=== PATIENT | female | born 1945 | race Caucasian/White ===

== ENCOUNTER 2018-02-09 10:16 | Emergency (ER) | payer MEDICARE, OTHER ==
[~2018-02-09] VITALS: Ht 154.9 cm; Wt 64.0 kg
[2018-02-09 11:18] LABS: BASOPHIL % 0.2 % (0-2); PLATELET COUNT 221 x10^3mcL (130-400); RED CELL DISTRIBUTION WIDTH 14.5 % (11.5-14.5)
[2018-02-09 11:27] LABS: CALCIUM 10.3 mg/dL (8.5-10.1); CARBON DIOXIDE 29.2 mmol/L (21-32); CHLORIDE SERUM 104 mmol/L (98-107); CREATININE SERUM 1.3 mg/dL (0.6-1.0); GLUCOSE SERUM 113 mg/dL (74-106); POTASSIUM SERUM 4.3 mmol/L (3.5-5.1); SODIUM SERUM 137 mmol/L (136-145)
[2018-02-09 11:32] LABS: ALBUMIN 3.8 g/dL (3.4-5.0); ALKALINE PHOSPHATASE 120 U/L (46-116); ALT/SGPT 18 U/L (14-59); AST/SGOT 21 U/L (15-37); BILIRUBIN TOTAL 0.61 mg/dL (0.20-1.00); TOTAL PROTEIN, SERUM 7.5 g/dL (6.4-8.2)
[2018-02-09 12:55] LABS: microscopic required? YES; urine erythrocyte 1+ (NEGATIVE)
[2018-02-09 13:06] VITALS: BP 142/91
== END 2018-02-09 13:06 | disposition home or self-care (01) ==
LOC: ED 10:16
PROVIDERS: Emergency Medicine
DX: R41.82 Altered mental status, unspecified (principal); N39.0 Urinary tract infection, site not specified; M19.90 Unspecified osteoarthritis, unspecified site
CPT/HCPCS: J7030

== ENCOUNTER 2018-05-26 14:31 | Inpatient (IN) | payer OTHER, MEDICARE ==
[~2018-05-26] VITALS: Ht 149.9 cm; Wt 68.0 kg
[2018-05-26 14:32] VITALS: Ht 149.9 cm; Wt 68.0 kg
[2018-05-26 15:12] LABS: BASOPHIL % 0.9 % (0-2); PLATELET COUNT 227 x10^3mcL (130-400)
[2018-05-26 15:13] LABS: RED CELL DISTRIBUTION WIDTH 15.1 % (11.5-14.5)
[2018-05-26 15:23] LABS: CARBON DIOXIDE 28.3 mmol/L (21-32); CHLORIDE SERUM 104 mmol/L (98-107); CREATININE SERUM 1.3 mg/dL (0.6-1.0); GLUCOSE SERUM 121 mg/dL (74-106); SODIUM SERUM 139 mmol/L (136-145)
[2018-05-26 15:26] LABS: ALBUMIN 3.6 g/dL (3.4-5.0); ALKALINE PHOSPHATASE 138 U/L (46-116); ALT/SGPT 17 U/L (14-59); AST/SGOT 26 U/L (15-37); BILIRUBIN TOTAL 0.4 mg/dL (0.20-1.00); LIPASE 106 IU/L (73-393); TOTAL PROTEIN, SERUM 7.8 g/dL (6.4-8.2); TRIGLYCERIDES 52 mg/dL (<150)
[2018-05-26 15:27] LABS: CHOLESTEROL 215 mg/dL (<200); CHOLESTEROL/HDL RATIO 2.9; HDL CHOLESTEROL 74 mg/dL (40-60)
[2018-05-26 15:40] LABS: FREE T4 1.41 ng/dL (0.76-1.46)
[2018-05-26 15:43] LABS: FREE THYROXINE INDEX 4.7 ug/dL (1.4-4.5); T4(THYROXINE) 13.7 ug/dL (4.7-13.3)
[2018-05-26] MEDS ORDERED: BREO ELLIPTA1 POW IH (15:46)
[2018-05-26] MEDS ORDERED: BETASERON0.3 M1 SQ (15:46)
[2018-05-26] MEDS ORDERED: CATAPRES0.1 MG PO (15:47)
[2018-05-26] MEDS ORDERED: FLOVENT DI100 MCG/A1 INH (15:47)
[2018-05-26] MEDS ORDERED: ZANTAC 150150 MG PO (15:47)
[2018-05-26] MEDS ORDERED: WELLBUTRIN SR100 M1 PO (15:48)
[2018-05-26] MEDS ORDERED: TIROSINT50 MC1 PO (15:48)
[2018-05-26] MEDS ORDERED: NORCO1 TA2 PO (15:49)
[2018-05-26] MEDS ORDERED: BACLOFEN10 MG PO (15:49)
[2018-05-26] MEDS ORDERED: TRAZODONE50 M1 PO (15:49)
[2018-05-26] MEDS ORDERED: VITAMIN D32000 I2 (15:49)
[2018-05-26 15:50] LABS: T3 TOTAL 1.26 ng/mL
[2018-05-26] MEDS ORDERED: AMITRIPTYLINE H25 M1 PO (15:50)
[2018-05-26 16:34] LABS: UA SPECIFIC GRAVITY 1.025 (1.005-1.035); microscopic required? YES; urine erythrocyte 2+ (NEGATIVE)
[2018-05-26 16:51] LABS: AMPHETAMINE QUAL UR NONE DETECTED (See below)
[2018-05-26 17:09] LABS: MAGNESIUM 2.4 mg/dL (1.8-2.4); PHOSPHOROUS 2.9 mg/dL (2.5-4.9)
[2018-05-26 18:13] VITALS: BP 145/77
[2018-05-26 18:21] VITALS: BP 145/77
[2018-05-26 18:39] VITALS: BP 145/77
[2018-05-26 20:59] VITALS: BP 130/72
[2018-05-27 05:24] VITALS: BP 124/65
[2018-05-27 06:36] LABS: BASOPHIL % 0.5 % (0-2); PLATELET COUNT 208 x10^3mcL (130-400)
[2018-05-27 07:14] LABS: CARBON DIOXIDE 28.6 mmol/L (21-32); CHLORIDE SERUM 110 mmol/L (98-107); GLUCOSE SERUM 106 mg/dL (74-106); MAGNESIUM 2.1 mg/dL (1.8-2.4); PHOSPHOROUS 2.5 mg/dL (2.5-4.9); POTASSIUM SERUM 4.7 mmol/L (3.5-5.1); SODIUM SERUM 144 mmol/L (136-145)
[2018-05-27 07:19] LABS: RED CELL DISTRIBUTION WIDTH 15.2 % (11.5-14.5)
[2018-05-27 09:47] VITALS: BP 99/60
[2018-05-27 12:53] VITALS: BP 120/65
[2018-05-27 17:01] VITALS: BP 131/70
[2018-05-27 19:45] VITALS: BP 148/65
[2018-05-28 06:00] VITALS: BP 147/75
[2018-05-28 06:35] LABS: BASOPHIL % 0.4 % (0-2); PLATELET COUNT 192 x10^3mcL (130-400)
[2018-05-28 07:05] LABS: CALCIUM 8.9 mg/dL (8.5-10.1); CARBON DIOXIDE 28.2 mmol/L (21-32); CHLORIDE SERUM 109 mmol/L (98-107); GLUCOSE SERUM 98 mg/dL (74-106); MAGNESIUM 1.9 mg/dL (1.8-2.4); PHOSPHOROUS 2.7 mg/dL (2.5-4.9); SODIUM SERUM 143 mmol/L (136-145)
[2018-05-28 08:30] VITALS: BP 158/93
[2018-05-28 12:22] VITALS: BP 150/86
[2018-05-28 17:09] VITALS: BP 145/77
[2018-05-28 20:33] VITALS: BP 108/54
[2018-05-29 05:35] VITALS: BP 154/75
[2018-05-29 07:23] LABS: CALCIUM 9.3 mg/dL (8.5-10.1); CARBON DIOXIDE 27.7 mmol/L (21-32); CHLORIDE SERUM 103 mmol/L (98-107); GLUCOSE SERUM 91 mg/dL (74-106); MAGNESIUM 1.9 mg/dL (1.8-2.4); PHOSPHOROUS 3.3 mg/dL (2.5-4.9); POTASSIUM SERUM 3.9 mmol/L (3.5-5.1); SODIUM SERUM 137 mmol/L (136-145)
[2018-05-29 08:02] LABS: BASOPHIL % 0.7 % (0-2); PLATELET COUNT 202 x10^3mcL (130-400); RED CELL DISTRIBUTION WIDTH 15.1 % (11.5-14.5)
[2018-05-29 09:03] VITALS: BP 148/86
[2018-05-29 12:46] VITALS: BP 118/82
[2018-05-29 17:33] VITALS: BP 124/67
[2018-05-29 21:28] VITALS: BP 131/74
[2018-05-30 05:29] VITALS: BP 128/67
[2018-05-30] MEDS ORDERED: LEVOFLOXACIN250 MG PO (08:58)
[2018-05-30 09:32] VITALS: BP 118/69; BP 125/78; BP 128/67
[2018-05-30 09:56] VITALS: BP 118/69
[2018-05-30 14:10] VITALS: BP 125/78
== END 2018-05-30 17:19 | DRG 48 ==
LOC: ED 14:31 → DU 16:20
PROVIDERS: General Practice; Internal Medicine; Specialist
PROC: 3E0234Z Introduction of Serum, Toxoid and Vaccine into Muscle, Percutaneous Approach (ICD-10-PCS; principal; 2018-05-26)
PROC: 0HQ0XZZ Repair Scalp Skin, External Approach (ICD-10-PCS; 2018-05-26)
DX: G90.8 Other disorders of autonomic nervous system (principal); N17.0 Acute kidney failure with tubular necrosis; G35 Multiple sclerosis; N39.0 Urinary tract infection, site not specified; S01.01XA Laceration without foreign body of scalp, initial encounter; M19.90 Unspecified osteoarthritis, unspecified site; E78.5 Hyperlipidemia, unspecified; E03.9 Hypothyroidism, unspecified; F32.9 Major depressive disorder, single episode, unspecified; Z96.653 Presence of artificial knee joint, bilateral; W17.89XA Other fall from one level to another, initial encounter; Y92.012 Bathroom of single-family (private) house as the place of occurrence of the external cause; Z87.891 Personal history of nicotine dependence; Z68.30 Body mass index [BMI] 30.0-30.9, adult; Y93.89 Activity, other specified; Y99.8 Other external cause status; Z98.49 Cataract extraction status, unspecified eye; Z88.1 Allergy status to other antibiotic agents; Z88.8 Allergy status to other drugs, medicaments and biological substances; Z23 Encounter for immunization
CPT/HCPCS: 76770; 83880; 84439; 90732; 97110-GP; 97116-GP; 97530-GP; A9577; J0696; J1885; J1956; J2405; J2550; J7030; Q0092

== ENCOUNTER 2019-06-10 23:19 | Inpatient (IN) | payer OTHER, MEDICARE ==
[~2019-06-10] VITALS: Ht 149.9 cm; Wt 67.3 kg
[~2019-06-10 23:19] MED LIST: AMITRIPTYLINE25 M1 PO; BACLOFEN10 MG PO; BETASERON0.3 M1 SQ; BREO ELLIPTA1 POW IH; CATAPRES0.1 MG PO; FLOVENT DI100 MCG/A1 INH; LEVOFLOXACIN250 MG PO; NORCO1 TA2 PO; TIROSINT50 MC1 PO; TRAZODONE50 M1 PO; VITAMIN D32000 I2; WELLBUTRIN SR100 M1 PO; ZANTAC 150150 MG PO
[2019-06-10 23:25] VITALS: Ht 149.9 cm; Wt 67.3 kg
[2019-06-11 00:32] LABS: BASOPHIL % 0.4 % (0-2); PLATELET COUNT 228 x10^3mcL (130-400); RED CELL DISTRIBUTION WIDTH 14.2 % (11.5-14.5)
[2019-06-11 00:39] LABS: CALCIUM 10.1 mg/dL (8.5-10.1); CARBON DIOXIDE 31.5 mmol/L (21-32); CHLORIDE SERUM 107 mmol/L (98-107); CREATININE SERUM 1.1 mg/dL (0.6-1.0); GLUCOSE SERUM 116 mg/dL (74-106); POTASSIUM SERUM 4.2 mmol/L (3.5-5.1); SODIUM SERUM 145 mmol/L (136-145)
[2019-06-11 00:43] LABS: ALKALINE PHOSPHATASE 98 U/L (46-116); ALT/SGPT 16 U/L (14-59); AST/SGOT 18 U/L (15-37); BILIRUBIN TOTAL 0.3 mg/dL (0.20-1.00); TOTAL PROTEIN, SERUM 6.9 g/dL (6.4-8.2)
[2019-06-11 00:53] LABS: ALBUMIN 3.3 g/dL (3.4-5.0)
[2019-06-11 03:55] LABS: microscopic required? YES; urine erythrocyte 1+ (NEGATIVE)
[2019-06-11 05:51] VITALS: BP 153/91
[2019-06-11 06:11] VITALS: BP 153/91
[2019-06-11 08:45] VITALS: BP 138/55
[2019-06-11 12:22] VITALS: BP 125/65
[2019-06-11 17:19] VITALS: BP 99/53
[2019-06-11 20:40] VITALS: BP 110/57
[2019-06-12 06:12] VITALS: BP 101/74
[2019-06-12 07:05] LABS: BASOPHIL % 0.6 % (0-2); PLATELET COUNT 180 x10^3mcL (130-400); RED CELL DISTRIBUTION WIDTH 14.2 % (11.5-14.5)
[2019-06-12 07:33] LABS: CALCIUM 10.2 mg/dL (8.5-10.1); CARBON DIOXIDE 30.3 mmol/L (21-32); CHLORIDE SERUM 103 mmol/L (98-107); CREATININE SERUM 1.2 mg/dL (0.6-1.0); GLUCOSE SERUM 68 mg/dL (74-106); POTASSIUM SERUM 4.5 mmol/L (3.5-5.1); SODIUM SERUM 139 mmol/L (136-145)
[2019-06-12 08:45] VITALS: BP 122/71
[2019-06-12 12:36] VITALS: BP 115/46
[2019-06-12 17:48] VITALS: BP 155/78
[2019-06-12 21:03] VITALS: BP 116/73
[2019-06-13 04:59] VITALS: BP 97/50
[2019-06-13 07:57] VITALS: BP 131/71
[2019-06-13 11:42] VITALS: BP 118/70
[2019-06-13 15:43] VITALS: BP 109/54
[2019-06-13 19:42] VITALS: BP 122/59
[2019-06-14 04:15] VITALS: BP 148/55
[2019-06-14 08:25] VITALS: BP 137/74
[2019-06-14 11:24] VITALS: BP 124/73
[2019-06-14 16:23] VITALS: BP 110/47
[2019-06-14 21:28] VITALS: BP 109/64
[2019-06-15 05:53] VITALS: BP 96/48
[2019-06-15 08:29] VITALS: BP 109/62
[2019-06-15 11:00] VITALS: BP 109/62
[2019-06-15 11:57] VITALS: BP 100/46
[2019-06-15 16:04] VITALS: BP 98/68
== END 2019-06-15 16:40 | DRG 140 ==
LOC: ED 23:19 → DU 06-11 02:49
PROVIDERS: Emergency Medicine; ADMIT Internal Medicine
DX: J44.0 Chronic obstructive pulmonary disease with (acute) lower respiratory infection (principal); J96.20 Acute and chronic respiratory failure, unspecified whether with hypoxia or hypercapnia; J18.9 Pneumonia, unspecified organism; J44.1 Chronic obstructive pulmonary disease with (acute) exacerbation; K21.9 Gastro-esophageal reflux disease without esophagitis; E03.9 Hypothyroidism, unspecified; J20.9 Acute bronchitis, unspecified; F17.210 Nicotine dependence, cigarettes, uncomplicated; I10 Essential (primary) hypertension; Z96.653 Presence of artificial knee joint, bilateral; Z88.1 Allergy status to other antibiotic agents
CPT/HCPCS: 83880; 87804; 97110-GP; 97116-GP; 97530-GP; G0378; J0456; J0696; J1200; J7040; J7620; Q0092